=== PATIENT | male | born 1975 | race Caucasian/White ===

== ENCOUNTER 2020-03-27 09:18 | Outpatient (REF) | payer SELFPAY | END 2020-03-27 09:19 | disposition home or self-care (01) | LOC: HO.LAB 09:18 | PROVIDERS: Visit Provider Internal Medicine | DX: Z20.828 Contact with and (suspected) exposure to other viral communicable diseases (principal) | CPT/HCPCS: C9803; U0003 ==

== ENCOUNTER 2021-04-23 11:32 | Observation (INO) | payer SELFPAY ==
--- NOTE | ~2021-04-23 | CT_ITS ---
EXAMINATION: CT ANGIOGRAM OF THE CHEST WITH AND WITHOUT CONTRAST (CT PULMONARY ANGIOGRAM FOR PE) CLINICAL INFORMATION: Reason for Exam hypoxia. wheezing. PE? Pneumonia? COMPARISON: Normal chest radiograph earlier today TECHNIQUE: Prior to contrast administration, noncontrast localization images were obtained. Subsequently, multidetector volumetric imaging was performed from the thoracic inlet to below the diaphragms following the administration of 71 mL Omnipaque 350 intravenous contrast. No contrast reaction reported Sagittal, coronal, and MIP oblique sagittal reformatted images were obtained on the CT workstation, uploaded to PACS, and reviewed. This CT examination was performed using dose optimization techniques as appropriate, variously including the following: *Automated exposure control *Adjustment of mA and/or kV according to patient size (this includes techniques or standardized protocols for targeted exams where dose is matched to indication/reason for exam; i.e. extremities or head) *Use of iterative reconstruction technique Total exam dose-length product 387 mGy-cm FINDINGS: QUALITY OF STUDY/CONTRAST BOLUS: The bolus is Satisfactory but there is considerable motion artifact. PULMONARY ARTERIES: No central or segmental pulmonary emboli. THORACIC AORTA: No aneurysm or dissection. LUNG: No focal consolidation, worrisome nodules or masses. There is a 3 mm pulmonary nodule present in the right lower lobe (7:258). There is an area of mucus bronchial plugging in the left upper lobe (7:131) PLEURA: No pleural effusion or pneumothorax. MEDIASTINUM: Normal heart size. No pericardial effusion. No hilar or mediastinal lymphadenopathy. No evidence of septal bowing or right heart strain. CHEST WALL/AXILLA: No axillary or internal mammary lymphadenopathy. OSSEOUS STRUCTURES: No acute or suspicious osseous abnormality. UPPER ABDOMEN: Probable hepatic steatosis. No reflux of contrast into the hepatic veins to suggest elevated right heart pressures. CT/CT angio chest PE protocol IMPRESSION: No evidence of pulmonary emboli No pneumonia is seen. Incidentally noted 3 mm right lower lobe lung nodule. 2017 Fleischner Society Recommendations for Lung Nodule(s): Follow-Up based on size (average of long- and short-axis diameters). Use most suspicious nodule for followup. Single Solid high risk nodule < 6 mm: In a low risk patient, no routine follow-up imaging is recommended. In a high risk patient, a non-contrast CT chest at 12 months is optional. If performed and the nodule is stable at 12 months, no further follow-up is recommended. These guidelines do not apply to patients younger than 35 years, immunocompromised patients, and patients with cancer. F/u in patients with significant comorbidities as clinically warranted. For lung cancer screening, adhere to Lung-RADS guidelines. Reference: Radiology. 2017 Ian; 284(1):228-243 VTE: negative
--- NOTE | ~2021-04-23 | XR_ITS ---
EXAMINATION: XR CHEST CLINICAL INFORMATION: Shortness of breath COMPARISON: None TECHNIQUE: Frontal view of the chest was obtained. FINDINGS: No significant abnormality is noted involving the heart, lungs, mediastinum, bony thorax or soft tissues. XR/XR chest 1V IMPRESSION: Unremarkable examination.
[2021-04-23 11:37] VITALS: BP 138/87; PULSE 100; RESP 22; TEMP 36.8; O2SAT 94; BMI 31.5
[2021-04-23 12:00] VITALS: RESP 24; O2SAT 90
[2021-04-23 12:36] LABS: COVID-19 Test Negative (Negative); IDNOW Serial# 08D9AD1C
[2021-04-23 15:02] VITALS: BP 124/82; PULSE 90; RESP 20; TEMP 36.7; O2SAT 92
--- NOTE | 2021-04-23 18:47 | PC.NURSE ---
pt now having in/ex wheezing
--- NOTE | 2021-04-23 19:05 | ED.ASTHMA ---
HPI - Asthma General Chief Complaint: Asthma Stated Complaint: Diff Breathing Asthma Time Seen by Provider: 04/23/21 18:56 Source: patient Mode of arrival: ambulatory Limitations: no limitations History of Present Illness HPI Narrative: Patient with pmh of asthma presents to the ED for SOB and wheenzing. patient states he ran out of his asthma exacerbation. Patient states no leg swelling or recent long travel. Patient mild shortness of breath on extertion. Related Data Allergies Allergy/AdvReac Type Severity Reaction Status Date / Time penicillin Allergy Unknown hives Uncoded 07/11/17 00:00 Review of Systems Review of Systems: Yes all other systems are reviewed and are negative Constitutional: Constitutional: Reports as per HPI and Reports no additional constitutional complaints Eyes: Eyes: Reports as per HPI and Reports no additional eye complaints ENT: Reports system reviewed and no additional complaints, except as documented and Reports as per HPI Cardiovascular: Cardiovascular: Reports as per HPI, Reports no additional cardiovascular complaints and Reports dyspnea Respiratory: Respiratory: Reports as per HPI, Reports no additional respiratory complaints, Reports excessive phlegm production and Reports dyspnea Gastrointestinal: Gastrointestinal: Reports as per HPI and Reports no additional gastrointestinal complaints Genitourinary: Genitourinary: Reports no additional male genitourinary complaints and Reports as per HPI Musculoskeletal: Musculoskeletal: Reports no additional musculoskeletal complaints and Reports as per HPI Neurologic: Reports system reviewed and no additional complaints, except as documented and Reports as per HPI Psychiatric: Psychiatric: Reports no additional psychiatric complaints and Reports as per HPI [facility] Past Medical History Medical History (Updated 04/24/21 @ 01:40 by ISAC Thompson) Asthma COVID-19 Social History Social History Advance Directives: No Advance Directives Information Provided: Yes Physical Exam Vital Signs: Vital Signs: Last Vital Signs Temp 98.1 F 04/23/21 15:02 Pulse 94 04/23/21 21:17 Resp 25 H 04/23/21 21:17 BP 124/82 04/23/21 15:02 Pulse Ox 92 04/23/21 15:02 BMI result Body Mass Index 31.5 Const: General: cooperative, healthy appearing, comfortable, no acute distress, well developed, alert, awake and Physically active Orientation/consciousness: patient oriented x3 HENMT: Head: Yes normal to inspection, Yes No palpable skull fracture present, Yes normocephalic, Yes atraumatic and No abrasion Ears: hearing grossly normal bilaterally, external ears normal, TM's normal bilaterally, EAC's normal, mastoids normal and no periauricular adenopathy Throat: Yes posterior oropharynx normal, Yes tonsils normal and Yes uvula midline Eyes: General: appearance normal, both eyes and all related structures Neck: Neck: Yes normal visual inspection, Yes full ROM, Yes no lymphadenopathy, Yes no meningeal signs, Yes trachea midline, Yes supple, No anterior neck swelling and No tender Chest: Chest palpation & inspection: normal inspection of the chest and normal palpation of entire chest wall Resp: Effort & Inspection: normal respiratory effort and able to speak in complete sentences Auscultation: wheezes expiratory wheezes (diffuse) and throughout GI: Inspection: Yes normal to inspection and No abdominal wall ecchymosis Palpation (GI): Soft to palpation, not firm, nontender, no guarding and not rigid : General: No CVA tenderness and Yes no CVA tenderness Back/Spine/Pelvis: Back: no CVA tenderness, No CVA tenderness and No back tenderness Skin: General skin exam: no rashes or lesions noted and elasticity normal Neuro: General: patient oriented x3, gait normal, no meningeal signs and CN's II-XI intact bilaterally Cranial nerves: Yes CN's II-XII intact bilaterally Extrem: General: Yes normal to inspection and Yes full ROM Psych: Appearance: grossly normal, well kempt and not disheveled Course Course Course Narrative: Patient ordered albuterol duoneb and prednisone. room air 02 saturatino is 92% Reevaluation(s) Reevaluation #1: No improvement in wheezing so labs were drawn and patient magnesium and solumedrol. Chest xray negative for pneumonia. patient ambulated and 02 sat dropped 91% and felt short of breath. Patient EKG was normal and troponin and BNP normal. Chest CTA negative for PE and pneumonia. Patient still has significan wheezing after another albuterol one hour treatment. Patient presented to hospitalist due to significant wheezing and 02 sation of 91% on room air. She accepted the case for admission Time: 01:36 MDM - Asthma MDM Narrative Medical decision making narrative: Asthma exacerbation Lab Data Result diagrams: 04/23/21 20:47 04/23/21 20:47 Labs: Lab Results 04/23/21 04/23/21 04/23/21 Range/Units 12:01 20:47 20:47 WBC 9.7 (4.8-10.8) X10*3/uL RBC 5.40 (4.60-5.80) X10*6/uL Hgb 16.1 (14.0-18.0) g/dl Hct 47.3 (42.0-52.0) % MCV 87.6 (80.0-98.0) fL MCH 29.8 (27.0-33.0) pg MCHC 34.0 (31.0-36.0) g/dl RDW 12.9 (11.0-16.0) % Plt Count 274 (160-400) X10*3/uL MPV 10.2 (9.4-12.4) fL Immature Gran % (Auto) 0.2 (0.0-0.4) % Neut % (Auto) 64.1 (45-73) % Lymph % (Auto) 17.6 L (20-40) % [place] % (Auto) 7.9 (2-11) % Eos % (Auto) 9.5 H (0-4) % Baso % (Auto) 0.7 (0-2) % Lymph # (Auto) 1.7 (1.2-4.9) X10*3/uL [place] # (Auto) 0.8 (0.1-1.2) X10*3/uL Eos # (Auto) 0.9 H (0.0-0.4) X10*3/uL Baso # (Auto) 0.1 (0.0-0.2) X10*3/uL Abs Immat Gran (auto) 0.02 (0.00-0.03) X10*3/uL Absolute Neuts (auto) 6.2 (2.0-8.3) x10*3/uL Absolute Nucleated RBC 0.000 (0.0-0.012) X10*3/uL Nucleated RBC % (auto) 0.0 (0.0-0.2) /100WBC Sodium 140 (135-145) mmol/L Potassium 4.4 (3.3-5.1) mmol/L Chloride 102 (96-108) mmol/L Carbon Dioxide 32 H (22-29) mmol/L Anion Gap 10 L (12-20) BUN 10 (9-16) mg/dL Creatinine 1.04 (0.5-1.4) mg/dL Estim Creat Clear Calc 105.0 Estimated GFR > 60 Random Glucose 105 (60-115) mg/dL Calcium 9.7 (8.4-10.2) mg/dL Total Bilirubin 0.7 (0.0-1.0) mg/dL AST 23 (5-37) U/L ALT 26 (0-40) U/L Alkaline Phosphatase 68 (39-117) U/L Troponin I High Sens (<3.5-35.0) ng/L B-Natriuretic Peptide (<100) pg/mL Total Protein 8.5 H (6.5-8.0) g/dL Albumin 4.4 (3.5-5.0) g/dL COVID-19 ([facility]) Negative (Negative) COVID-19 Clin Com See Note Influenza Type A (PCR) (Negative) Influenza Type B (PCR) (Negative) RSV RNA Qual (PCR) (Negative) SARS-CoV-2 RNA (RT-PCR) (Negative) 04/23/21 04/23/21 Range/Units 23:07 23:09 WBC (4.8-10.8) X10*3/uL RBC (4.60-5.80) X10*6/uL Hgb (14.0-18.0) g/dl Hct (42.0-52.0) % MCV (80.0-98.0) fL MCH (27.0-33.0) pg MCHC (31.0-36.0) g/dl RDW (11.0-16.0) % Plt Count (160-400) X10*3/uL MPV (9.4-12.4) fL Immature Gran % (Auto) (0.0-0.4) % Neut % (Auto) (45-73) % Lymph % (Auto) (20-40) % [place] % (Auto) (2-11) % Eos % (Auto) (0-4) % Baso % (Auto) (0-2) % Lymph # (Auto) (1.2-4.9) X10*3/uL [place] # (Auto) (0.1-1.2) X10*3/uL Eos # (Auto) (0.0-0.4) X10*3/uL Baso # (Auto) (0.0-0.2) X10*3/uL Abs Immat Gran (auto) (0.00-0.03) X10*3/uL Absolute Neuts (auto) (2.0-8.3) x10*3/uL Absolute Nucleated RBC (0.0-0.012) X10*3/uL Nucleated RBC % (auto) (0.0-0.2) /100WBC Sodium (135-145) mmol/L Potassium (3.3-5.1) mmol/L Chloride (96-108) mmol/L Carbon Dioxide (22-29) mmol/L Anion Gap (12-20) BUN (9-16) mg/dL Creatinine (0.5-1.4) mg/dL Estim Creat Clear Calc Estimated GFR Random Glucose (60-115) mg/dL Calcium (8.4-10.2) mg/dL Total Bilirubin (0.0-1.0) mg/dL AST (5-37) U/L ALT (0-40) U/L Alkaline Phosphatase (39-117) U/L Troponin I High Sens < 3.5 (<3.5-35.0) ng/L B-Natriuretic Peptide < 10 (<100) pg/mL Total Protein (6.5-8.0) g/dL Albumin (3.5-5.0) g/dL COVID-19 ([facility]) (Negative) COVID-19 Clin Com Influenza Type A (PCR) NEGATIVE (Negative) Influenza Type B (PCR) NEGATIVE (Negative) RSV RNA Qual (PCR) NEGATIVE (Negative) SARS-CoV-2 RNA (RT-PCR) NEGATIVE (Negative) ECG Data Interpretation: Sinus tachycarida VEnt rate 111, TN interval 128, QRS 92, and QTC 456 Discharge Plan Discharge Clinical Impression: Asthma with acute exacerbation Patient Disposition: Admitted As Inpatient
[2021-04-23] MEDS: predniSONE 20 MG TABLET 60 MG PO (19:34)
[2021-04-23 20:01] VITALS: PULSE 82; RESP 16; O2SAT 96
[2021-04-23] MEDS: Albuterol/Iprat 2.5/0.5MG 3 ML AMPUL.NEB INHALE (20:01)
--- NOTE | 2021-04-23 20:08 | PC.NURSE ---
pt noted to have diffuse wheezes in all [place], no accessory muscle use noted. pt speaks in full clear senteces, awaiyting rt for upd and spacer with teaching.
[2021-04-23 20:52] LABS: MANUAL DIFF FLAG NO
[2021-04-23 20:54] LABS: Basophils Absolute Auto 0.1 X10*3/uL (0.0-0.2); Basophils Percent Auto 0.7 % (0-2); Eosinophils Absolute Auto 0.9 X10*3/uL (0.0-0.4); Eosinophils Percent Auto 9.5 % (0-4); Hematocrit 47.3 % (42.0-52.0); Hemoglobin 16.1 g/dl (14.0-18.0); Imm Gran Abs Auto 0.02 X10*3/uL (0.00-0.03); Imm Gran Pct Auto 0.2 % (0.0-0.4); Lymphocytes Absolute Auto 1.7 X10*3/uL (1.2-4.9); Lymphocytes Percent Auto 17.6 % (20-40); Mean Corpuscular Hemoglobin 29.8 pg (27.0-33.0); Mean Corpuscular Volume 87.6 fL (80.0-98.0); Mean Platelet Volume 10.2 fL (9.4-12.4); Monocytes Absolute Auto 0.8 X10*3/uL (0.1-1.2); Monocytes Percent Auto 7.9 % (2-11); Neutrophils Absolute Auto 6.2 x10*3/uL (2.0-8.3); Neutrophils Percent Auto 64.1 % (45-73); Platelet Count 274 X10*3/uL (160-400); Red Cell Distribution Width 12.9 % (11.0-16.0); White Blood Count 9.7 X10*3/uL (4.8-10.8)
[2021-04-23] MEDS: Magnesium Sulfate/H2O 2 GM/50 ML PIGGYBACK IV (21:00)
--- NOTE | 2021-04-23 21:05 | PC.NURSE ---
no improvment after resp tx, pt still requires 1 lpm o2 via nc for o2 SAT above 95. 20 ga in started l ac, pac augstine aware. still wheezes insp and exp in all [place].
[2021-04-23 21:08] LABS: Alanine Aminotransferase 26 U/L (0-40); Albumin Level 4.4 g/dL (3.5-5.0); Alkaline Phosphatase 68 U/L (39-117); Anion Gap 10 (12-20); Aspartate Amino Transferase 23 U/L (5-37); Bilirubin Total 0.7 mg/dL (0.0-1.0); Blood Urea Nitrogen 10 mg/dL (9-16); Calcium 9.7 mg/dL (8.4-10.2); Carbon Dioxide 32 mmol/L (22-29); Chloride 102 mmol/L (96-108); Estimated Glomerular Filt Rate > 60; Glucose Random 105 mg/dL (60-115); Potassium 4.4 mmol/L (3.3-5.1); Sodium 140 mmol/L (135-145); Total Protein 8.5 g/dL (6.5-8.0)
[2021-04-23] MEDS: Albuterol Sulfate (0.083%) 2.5 MG/3 ML VIAL.NEB 5 MG INHALE (21:16)
[2021-04-23 21:17] VITALS: PULSE 94; RESP 25; O2SAT 95
--- NOTE | 2021-04-23 22:21 | ECG_ITS ---
Test Reason : sob Blood Pressure : / mmHG Vent. Rate : 111 BPM Atrial Rate : 111 BPM P-R Int : 128 ms QRS Dur : 092 ms QT Int : 336 ms P-R-T Axes : 071 072 020 degrees QTc Int : 456 ms Sinus tachycardia Nonspecific ST-T changes Borderline ECG No previous ECGs available Referred By: Randy Pedroza Electronically Signed By:Semaj Burk
--- NOTE | 2021-04-23 22:46 | PC.NURSE ---
pt ambulated approx 70 ft on ra, sat decreased to 91%, PAC [place] was made aware.
[2021-04-23] MEDS: iohexoL 350 MG/ML 100 ML INFUS..BTL IV (22:56)
[2021-04-23] MEDS: methylPREDNISolone Sod Succ 125 MG/2 ML VIAL IVPUSH (23:37)
[2021-04-23 23:46] LABS: B Type Natriuretic Peptide < 10 pg/mL (<100); Troponin-I High Sensitivity < 3.5 ng/L (<3.5-35.0)
--- NOTE | 2021-04-23 23:57 | PM.IMHP ---
History of Present Illness Date of Service: 04/23/21 Chief Complaint: asthma exacerbation 45-year-old male with past medical history of asthma presents to the hospital with complaints of asthma exacerbation past 1 week. Patient reports that he ran out of his inhalers and has in bed on hurt his symptoms for the past week. He is having cough with no sputum production, no fever or chills, no chest pain, no abdominal pain, no nausea or vomiting, no diarrhea, no constipation, no urinary symptoms and no lower extremity edema. He received by point doses of breathing treatments around his well as Solu-Medrol high-dose with no significant relief of his symptoms . Patient will be admitted for observation on arrival to the ED patient hemodynamically stable with no significant abnormal vitals Labs reviewed showed no significant abnormality Chest x-ray showed unremarkable exam Chest CTA showed no PE, And no pneumonia Review of Systems Review of Systems: Yes all other systems are reviewed and are negative [facility] Medical History Asthma COVID-19 Family History (Updated 04/24/21 @ 07:07 by Bita Aparicio MD) Brother Diabetes Surgical History (Updated 04/24/21 @ 07:07 by Bita Aparicio MD) No pertinent past surgical history Social History Advance Directives: No Advance Directives Information Provided: Yes Meds Allergies Allergy/AdvReac Type Severity Reaction Status Date / Time penicillin Allergy Unknown hives Uncoded 07/11/17 00:00 Home Medications Medication Instructions Recorded Confirmed Last Taken Type albuterol sulfate 90 mcg/actuation 1 puff INHALATION QID PRN 04/24/21 04/24/21 Unknown History aerosol inhaler fluticasone 250 mcg-salmeterol 50 1 puff INHALATION BID 04/24/21 04/24/21 Unknown History mcg/dose blistr powdr for inhalation ipratropium 0.5 mg-albuterol 3 mg 3 ml INHALATION Q4-6H PRN 04/24/21 04/24/21 Unknown History (2.5 mg base)/3 mL nebulization soln Physical Exam Vital Signs and Narrative: Vital Signs: Last Vital Signs Temp 98.1 F 04/23/21 15:02 Pulse 94 04/23/21 21:17 Resp 25 H 04/23/21 21:17 BP 124/82 04/23/21 15:02 Pulse Ox 92 04/23/21 15:02 BMI result Body Mass Index 31.5 Results Labs CBC and Chem 7: 04/23/21 20:47 04/23/21 20:47 Labs: Laboratory Results - last 24 hr 04/23/21 04/23/21 04/23/21 12:01 20:47 20:47 MCV 87.6 MCH 29.8 MCHC 34.0 RDW 12.9 Plt Count 274 MPV 10.2 Immature Gran % (Auto) 0.2 Neut % (Auto) 64.1 Lymph % (Auto) 17.6 L [place] % (Auto) 7.9 Eos % (Auto) 9.5 H Baso % (Auto) 0.7 Lymph # (Auto) 1.7 [place] # (Auto) 0.8 Eos # (Auto) 0.9 H Baso # (Auto) 0.1 Abs Immat Gran (auto) 0.02 Absolute Neuts (auto) 6.2 Absolute Nucleated RBC 0.000 Nucleated RBC % (auto) 0.0 Anion Gap 10 L Estim Creat Clear Calc 105.0 Estimated GFR > 60 Random Glucose 105 Calcium 9.7 Total Bilirubin 0.7 AST 23 ALT 26 Alkaline Phosphatase 68 Troponin I High Sens B-Natriuretic Peptide Total Protein 8.5 H Albumin 4.4 COVID-19 ([facility]) Negative COVID-19 Clin Com See Note 04/23/21 23:07 MCV MCH MCHC RDW Plt Count MPV Immature Gran % (Auto) Neut % (Auto) Lymph % (Auto) [place] % (Auto) Eos % (Auto) Baso % (Auto) Lymph # (Auto) [place] # (Auto) Eos # (Auto) Baso # (Auto) Abs Immat Gran (auto) Absolute Neuts (auto) Absolute Nucleated RBC Nucleated RBC % (auto) Anion Gap Estim Creat Clear Calc Estimated GFR Random Glucose Calcium Total Bilirubin AST ALT Alkaline Phosphatase Troponin I High Sens < 3.5 B-Natriuretic Peptide < 10 Total Protein Albumin COVID-19 ([facility]) COVID-19 Clin Com Imaging Radiologist's Impressions: Impressions Chest X-Ray 04/23/21 19:08 IMPRESSION: Unremarkable examination. Chest CTA 04/23/21 22:56 IMPRESSION: No evidence of pulmonary emboli No pneumonia is seen. Incidentally noted 3 mm right lower lobe lung nodule. 2017 Fleischner Society Recommendations for Lung Nodule(s): Follow-Up based on size (average of long- and short-axis diameters). Use most suspicious nodule for followup. Single Solid high risk nodule < 6 mm: In a low risk patient, no routine follow-up imaging is recommended. In a high risk patient, a non-contrast CT chest at 12 months is optional. If performed and the nodule is stable at 12 months, no further follow-up is recommended. These guidelines do not apply to patients younger than 35 years, immunocompromised patients, and patients with cancer. F/u in patients with significant comorbidities as clinically warranted. For lung cancer screening, adhere to Lung-RADS guidelines. Reference: Radiology. 2017 Ian; 284(1):228-243 VTE: negative Assessment and Plan (1) Asthma with acute exacerbation: Status: Acute 45-year-old with past medical history of asthma presents to the hospital with asthma exacerbation # asthma exacerbation - post treat him with Solu-Medrol 40 IV b.i.d. - DuoNeb p.r.n. as well as scheduled - monitor respiratory status DVT prophylaxis: Early ambulation Quality Stroke Does the patient have a stroke diagnosis?: No VTE Prior VTE?: No VTE Risk Level:: Medical - moderate - high VTE Device Contraindication: Treatment Not Indicated VTE Drug Contraindication: Treatment Not Indicated
[2021-04-24 00:02] LABS: Influenza A PCR NEGATIVE (Negative); Influenza B PCR NEGATIVE (Negative); Resp Syncy Virus RNA Qual PCR NEGATIVE (Negative); SARS COV2 PCR INHOUSE NEGATIVE (Negative)
[2021-04-24 05:42] VITALS: BP 120/63; PULSE 100; RESP 16; TEMP 37; O2SAT 94
[2021-04-24] MEDS: methylPREDNISolone Sod Succ 40 MG/ML VIAL IVPUSH (08:02)
[2021-04-24] MEDS: 0.9 % Sodium Chloride Flush 3 ML SYRINGE IVFLUSH (08:02)
--- NOTE | 2021-04-24 08:04 | PC.NURSE ---
Pt A&Ox3, independent in the room, no complaints of pain at this time, medicated as per MAR orders. Explained solumedrol usage to pain, eating breakfast at this time. Call [place] within reach, will continue to monitor.
[2021-04-24 08:15] VITALS: PULSE 95; RESP 22; O2SAT 94
[2021-04-24] MEDS: Albuterol/Iprat 2.5/0.5MG 3 ML AMPUL.NEB INHALE ×2 (08:15→12:10)
[2021-04-24 08:23] VITALS: BP 149/88; PULSE 113; RESP 18; O2SAT 95
--- NOTE | 2021-04-24 09:36 | PHA.MEDREC ---
Pharmacy Consult ? Medication Reconciliation Pharmacy has completed the medication reconciliation. Patient report he is out of his medications and need refills on all his medications. Natalie Stovall, CristóbalD
[2021-04-24 10:05] VITALS: BP 116/78; PULSE 112; RESP 18; O2SAT 93
--- NOTE | 2021-04-24 11:00 | MHC.CM.PN ---
Met with patient in regards to discharge planning. Patient lives with his and kids, ambulates independently and had no services prior to coming to the hospital. Patient has no PCP because his PCP retired and he currently doesn't have insurance. Melanie from financial counseling has already contacted patient about enrolling in [place]. Patient's has a copy of his HCP and he will attempt to obtain a copy. Patient received 2 Moderna vaccines. Obs notice explained and signed. Patient's will transport patient home when medically stable. Continue to monitor for d/c needs.
--- NOTE | 2021-04-24 11:10 | P.DS_ITS ---
DS: Providers Provider Date of Service: 04/24/21 Date of admission: 04/23/21 23:57 Primary care physician: Unknown Physician DS: Diagnosis Discharge Diagnosis (1) Asthma with acute exacerbation: Status: Acute DS: Summary Hospital Course Hospital Course: patient was admitted for mild intermittent asthma with acute exacerbation due to lapse in insurance and inability to get maintenance medication. He was treated with steroids and bronchodilators and had significant improvement. Still has some wheezing but is feeling 90% better. Patient will be discharged home on 5 more days of prednisone. Prescriptions for Advair, albuterol, singular have been sent to his pharmacy. Time Spent with Patient Time attestation: Total time spent providing and/or coordinating discharge services: Discharge coordination time: Greater than 30 minutes Quality: Stroke Does the patient have a stroke diagnosis?: No Physical Exam Vital Signs: Vital Signs: Last Vital Signs Temp 98.6 F 04/24/21 05:42 Pulse 112 H 04/24/21 10:05 Resp 18 04/24/21 10:05 BP 116/78 04/24/21 10:05 Pulse Ox 93 04/24/21 10:05 BMI result Body Mass Index 31.5 General: AO X 3, no acute distress Resp: expiratory wheeze bilateral, no accessory muscles used CVS: S1,S2,RRR GI: soft, non tender, non distended Neuro: motor grossly intact, alert Psych: appropriate affect, appropriate insight DS: Data Data Completed and Pending Labs on day of discharge: Laboratory Results - last 24 hr 04/23/21 04/23/21 04/23/21 12:01 20:47 20:47 WBC 9.7 RBC 5.40 Hgb 16.1 Hct 47.3 MCV 87.6 MCH 29.8 MCHC 34.0 RDW 12.9 Plt Count 274 MPV 10.2 Immature Gran % (Auto) 0.2 Neut % (Auto) 64.1 Lymph % (Auto) 17.6 L [place] % (Auto) 7.9 Eos % (Auto) 9.5 H Baso % (Auto) 0.7 Lymph # (Auto) 1.7 [place] # (Auto) 0.8 Eos # (Auto) 0.9 H Baso # (Auto) 0.1 Abs Immat Gran (auto) 0.02 Absolute Neuts (auto) 6.2 Absolute Nucleated RBC 0.000 Nucleated RBC % (auto) 0.0 Sodium 140 Potassium 4.4 Chloride 102 Carbon Dioxide 32 H Anion Gap 10 L BUN 10 Creatinine 1.04 Estim Creat Clear Calc 105.0 Estimated GFR > 60 Random Glucose 105 Calcium 9.7 Total Bilirubin 0.7 AST 23 ALT 26 Alkaline Phosphatase 68 Troponin I High Sens B-Natriuretic Peptide Total Protein 8.5 H Albumin 4.4 COVID-19 ([facility]) Negative COVID-19 Clin Com See Note Influenza Type A (PCR) Influenza Type B (PCR) RSV RNA Qual (PCR) SARS-CoV-2 RNA (RT-PCR) 04/23/21 04/23/21 23:07 23:09 WBC RBC Hgb Hct MCV MCH MCHC RDW Plt Count MPV Immature Gran % (Auto) Neut % (Auto) Lymph % (Auto) [place] % (Auto) Eos % (Auto) Baso % (Auto) Lymph # (Auto) [place] # (Auto) Eos # (Auto) Baso # (Auto) Abs Immat Gran (auto) Absolute Neuts (auto) Absolute Nucleated RBC Nucleated RBC % (auto) Sodium Potassium Chloride Carbon Dioxide Anion Gap BUN Creatinine Estim Creat Clear Calc Estimated GFR Random Glucose Calcium Total Bilirubin AST ALT Alkaline Phosphatase Troponin I High Sens < 3.5 B-Natriuretic Peptide < 10 Total Protein Albumin COVID-19 ([facility]) COVID-19 Clin Com Influenza Type A (PCR) NEGATIVE Influenza Type B (PCR) NEGATIVE RSV RNA Qual (PCR) NEGATIVE SARS-CoV-2 RNA (RT-PCR) NEGATIVE Discharge Plan Discharge Patient Disposition: Home, Self-Care Discharge Diagnosis: asthma Referrals: Physician,Unknown J [Primary Care Provider] - 1 Week Discharge Medications: New prednisone 20 mg tablet 40 mg PO DAILY Qty: 10 RF: 0 Continued fluticasone propion-salmeterol 250-50 mcg/dose blister with device 1 puff inhalation BID RF: 0 ipratropium-albuterol 0.5 mg-3 mg(2.5 mg base)/3 mL solution for nebulization 3 ml inhalation Q4-6H PRN (Reason: Wheezing) RF: 0 albuterol sulfate 90 mcg/actuation HFA aerosol inhaler 1 puff inhalation QID PRN (Reason: Shortness Of Breath) RF: 0 montelukast [Singulair] 10 mg Tablet 10 mg PO DAILY RF: 0 ipratropium-albuterol 0.5 mg-3 mg(2.5 mg base)/3 mL solution for nebulization 3 ml inhalation Q4-6H PRN (Reason: Wheezing) Qty: 30 RF: 0 montelukast [Singulair] 10 mg Tablet 10 mg PO DAILY Qty: 30 RF: 0 albuterol sulfate 90 mcg/actuation HFA aerosol inhaler 1 puff inhalation QID PRN (Reason: Shortness Of Breath) Qty: 1 RF: 0 Changed fluticasone propion-salmeterol 250-50 mcg/dose blister with device 1 inh inhalation BID Qty: 1 RF: 1 Diet: advance to usual diet Activity on Discharge: As tolerated Stand Alone Forms: Patient Portal Discharge page Care Plan Goals: recovery Health Concerns: asthma Plan of Treatment: prednisone albuterol as needed karen zimmerman for maintainence Assessment: see above
[2021-04-24 12:11] VITALS: PULSE 95; RESP 22; O2SAT 94
--- NOTE | 2021-04-24 12:13 | MHC.CM.PN ---
Pt medically cleared to d/c to home: no services anticipated: pt is contacting his spouse for transportation
--- NOTE | 2021-04-24 13:29 | PC.NURSE ---
1100 AM: Pt received. Pt AOX4 and offers no complaints at this time. Heart sounds normal and lungs sounds with slight wheeze noted. Pt has been receiving regular scheduled breathing treatments which have helped as per pt. Pt abd soft and non-tender.
[2021-04-24 14:17] VITALS: BP 140/84; PULSE 110; RESP 18; O2SAT 94
--- NOTE | 2021-04-24 16:14 | PC.NURSE ---
DC instructions reviewed w/pt. IV removed, all medications, results and questions reviewed w/pt. Pt A&OX3.
== END 2021-04-24 16:44 | disposition home or self-care (01) ==
LOC: HO.ED 19:23 → HO.EDOVER 04-24 00:31
PROVIDERS: Physician Assistant; Admitting Provider Internal Medicine; Emergency Provider Emergency Medicine; Visit Provider Internal Medicine
DX: J45.21 Mild intermittent asthma with (acute) exacerbation (principal); R09.02 Hypoxemia; R06.02 Shortness of breath; R00.0 Tachycardia, unspecified; R91.1 Solitary pulmonary nodule; Z20.822 Contact with and (suspected) exposure to COVID-19; Z86.16 Personal history of COVID-19; Z59.6 Low income; Z88.0 Allergy status to penicillin
CPT/HCPCS: 0241U; 36415; 71045; 71275; 80053; 83880; 84484; 85025; 87635; 93005; 94640; 94644; 96365; 96366; 96375; 99218; 99285; J2920; J2930; J3475; Q9967